=== PATIENT | female | born 2000 | race Hispanic/Latino ===

== ENCOUNTER → 2023-12-22 | Day surgery (SDC) | payer OTHER ==
[~2023-12-22] MED LIST: DOXYCYCLINE HY100 MG PO; FENTANYL CITRATE/PF 100MCG/2 ML INJ ONE; LIDOCAINE HCL 2% LOCAL INJ 5 ML SDV VIAL INJ ONE; MIDAZOLAM HCL 2 MG/2 ML VIAL ONE; PROPOFOL IV EMULSION 10 MG/ML 20 ML VIAL ONE; PROPOFOL IV EMULSION 10 MG/ML 50 ML VIAL IV ONE
[2023-12-22] MEDS: LACTATED RINGER'S 1,000 ML ONE (13:25)
[2023-12-22 17:01] VITALS: TEMP 97.9
[2023-12-22 17:30] VITALS: BP 106/66; PULSE 70; RESP 16; O2SAT 96
== END | disposition home or self-care (01) ==
LOC: OR 12:59
PROVIDERS: ATTEND Internal Medicine Gastroenterology
DX: K29.50 Unspecified chronic gastritis without bleeding (principal); K21.9 Gastro-esophageal reflux disease without esophagitis; K58.9 Irritable bowel syndrome, unspecified; K20.90 Esophagitis, unspecified without bleeding; Z98.84 Bariatric surgery status; K59.09 Other constipation; Z71.3 Dietary counseling and surveillance; E66.01 Morbid (severe) obesity due to excess calories; M26.609 Unspecified temporomandibular joint disorder, unspecified side; F41.9 Anxiety disorder, unspecified; Z68.29 Body mass index [BMI] 29.0-29.9, adult
CPT/HCPCS: 43239; 81025; J2001; J2250; J2470